=== PATIENT | male | born 1960 | race Caucasian/White ===

== ENCOUNTER 2019-06-26 14:47 | Emergency (ER) | payer MEDICAID ==
[~2019-06-26] VITALS: Ht 177.8 cm; Wt 159.1 kg
[~2019-06-26 14:47] MED LIST: CLIN-90 PO; CLIN150C8 PO
[2019-06-26] MEDS ORDERED: TRAM50TA2 PO (15:29)
== END 2019-06-26 15:39 | disposition home or self-care (01) ==
LOC: CANPREER → ER 14:48
DX: M65.4 Radial styloid tenosynovitis [de Quervain] (principal); I25.10 Atherosclerotic heart disease of native coronary artery without angina pectoris; E78.00 Pure hypercholesterolemia, unspecified; I10 Essential (primary) hypertension; J44.9 Chronic obstructive pulmonary disease, unspecified; E11.9 Type 2 diabetes mellitus without complications; G89.29 Other chronic pain; F41.9 Anxiety disorder, unspecified; F32.9 Major depressive disorder, single episode, unspecified; F12.90 Cannabis use, unspecified, uncomplicated; Z86.14 Personal history of Methicillin resistant Staphylococcus aureus infection; Z98.890 Other specified postprocedural states; Z90.89 Acquired absence of other organs; Z79.899 Other long term (current) drug therapy
CPT/HCPCS: 29125; 73110; 99283